=== PATIENT | female | born 1985 | race Caucasian/White ===

== ENCOUNTER 2018-06-01 16:08 | Emergency (ER) | payer OTHER ==
[~2018-06-01] VITALS: Ht 162.6 cm; Wt 90.7 kg
[2018-06-01 16:19] VITALS: BP 125/86
--- NOTE | 2018-06-01 16:23 | NUR ---
PT TRIAGED AND AMBULATED TO ER LOBBY, URINE CUP PROVIDED
--- NOTE | 2018-06-01 16:25 | NUR ---
PT BIB SELF TO THE ED WITH THE CHIEF C/O RUQ PAIN SINCE SUNDAY NIGHT. REPORTS VOMITING SINCE THEN. VOMIT X6 TODAY. NO BLOOD IN VOMIT. PT WENT TO URGENT CARE ON SUNDAY. WAS TAKING CEFUROXIME, OMEPRAZOLE AND ASPIRIN SINCE THEN W/O OF SYMPTOMS. PT STATES SYMPTOMS ARE WORSENING. REPORTS NAUSEA AT THIS TIME. DENIES BURNING OR FREQUENCY OF URINATION. STATES PAIN OF 10/10 AT THIS TIME. ER MD AWARE.
--- NOTE | 2018-06-01 16:26 | NUR ---
pt ambulated to bed 2 at this time. Addendum: 06/01/18 at 1636 by [email or web address] bed 3
[2018-06-01] MEDS ORDERED: NACL 0.9% 1,000 ML IV ONE (17:25)
[2018-06-01] MEDS ORDERED: MORPHINE SULFATE 4 MG/ML SYR IVP ONE (17:25)
[2018-06-01] MEDS ORDERED: ONDANSETRON 4 MG/2 ML VIAL IVP ONE (17:25)
[2018-06-01 18:02] LABS: BASOPHILS % (AUTO) 0.5 % (0.0-2.0); EOSINOPHILS % (AUTO) 0.2 % (0.0-4.0); HEMATOCRIT 38.3 % (36-48); HEMOGLOBIN 12.8 g/dL (12.0-16.0); LYMPHOCYTES # (AUTO) 1.4 K/uL (2.5-16.5); LYMPHOCYTES % (AUTO) 14.6 % (20.5-51.1); MEAN CORPUSCULAR HEMOGLOBIN 29 pg (27-31); MEAN CORPUSCULAR HGB CONC 34 g/dL (33-37); MEAN CORPUSCULAR VOLUME 87.7 fL (80-94); MONOCYTES # (AUTO) 0.8 K/uL (0.8-1.0); MONOCYTES % (AUTO) 7.8 % (1.7-9.3); NEUTROPHILS # (AUTO) 7.5 K/uL (1.8-7.7); NEUTROPHILS % (AUTO) 76.9 % (42.2-75.2); PLATELET COUNT (AUTO) 368 K/uL (140-450); RED BLOOD CELL COUNT(AUTO) 4.37 MIL/uL (4.20-5.40); RED CELL DISTRIBUTION WIDTH 14.6 % (11.6-13.7); WHITE BLOOD COUNT (AUTO) 9.8 K/uL (4.8-10.8)
[2018-06-01 18:02] LABS: APPEARANCE,URINE SL CLOUDY (CLEAR); BILIRUBIN,URINE 3+ (NEGATIVE); BLOOD, URINE NEGATIVE (NEGATIVE); COLOR,URINE ORANGE (YELLOW); LEUKOCYTE ESTERASE ,URINE TRACE (NEGATIVE); NITRITE, URINE NEGATIVE (NEGATIVE); PH,URINE 7.5 (5.0-9.0); UGLUCOSE NEGATIVE (NEGATIVE)
[2018-06-01 18:18] LABS: CARBON DIOXIDE 24.6 mmol/L (21-32); CREATININE 0.7 mg/dL (0.6-1.3); POTASSIUM 3.6 mmol/L (3.5-5.1)
[2018-06-01 18:22] LABS: ALBUMIN 3.8 g/dL (3.4-5.0); TOTAL BILIRUBIN 4.6 mg/dL (0.0-1.0)
--- NOTE | 2018-06-01 19:04 | NUR ---
REPORT GIVEN TO PAYROLL MANAGER RN FOR CONTINUITY OF CARE.
[2018-06-01 19:21] VITALS: BP 121/77
[2018-06-01 19:22] LABS: RBC,URINE 0-5 /HPF (0-5)
--- NOTE | 2018-06-01 19:22 | NUR ---
Patient discharged with v/s stable. Written and verbal after care instructions given and explained. Patient verbalized understanding. Ambulatory with steady gait. All questions addressed prior to discharge. Advised to follow up with PMD.
--- NOTE | 2018-06-04 07:42 | NUR ---
Late Entry. IV fluids infused until discharde at 1920.
== END 2018-06-01 19:25 | disposition home or self-care (01) ==
LOC: MED 16:08
DX: K80.80 Other cholelithiasis without obstruction (principal)
CPT/HCPCS: 36415; 76705; 80053; 81001; 81025; 82150; 83690; 85025; 87086; 96361; 96374; 96375; 99284; J2270; J2405; J7030; Q0092

== ENCOUNTER 2018-06-04 18:06 | Emergency (ER) | payer OTHER ==
[~2018-06-04] VITALS: Ht 162.6 cm; Wt 93.1 kg
[2018-06-04 18:26] VITALS: BP 118/68
--- NOTE | 2018-06-04 19:08 | NUR ---
PT AMBULATED TO ER BED 10
[2018-06-04] MEDS ORDERED: KETOROLAC 60 MG/2 ML VIAL IM ONE (19:20)
--- NOTE | 2018-06-04 19:23 | NUR ---
33 YO F PRESENTS TO ED CO UPPER RIGHT ABD PAIN AND FREQUENT N/V SINCE SUNDAY. PT STATES SHE WAS SEEN IN [place] ED ON SUNDAY WITH SIMILAR S/S AND WAS DISCHARGED HOME WITH GALLSTONES AND RECOMMENDED TO F/U WITH HER PMD. PT STATES HER PMD NO LONGER TAKES HER INSURANCE. PT REPORTS THAT HER PAIN HAS INCREASED AND SHE HAS VOMITED 6 TIMES TODAY. -- ABD SOFT, ROUND, TENDER TO TOUCH IN RIGHT UPPER ABD. NO REBOUND TENDERNESS. BOWEL SOUNDS PRESENT AND ACTIVE IN ALL 4 QUADRANTS. -- PMH: DENIES -- RX: DENIES
[2018-06-04 20:15] VITALS: BP 110/69
--- NOTE | 2018-06-04 20:15 | NUR ---
DISCHARGE INSTRUCTIONS PROVIDED. 0/10 ABD PAIN. NO SOB/DYPNEA. AFEBRILE. VSS. PT TEACHING PROVIDED ON DIS PROCESS, DIETARY NEEDS, AND MEDICATIONS. PT VERBALLIZED UNDERSTANDING OF DC INSTRUCITONS. ALL QUESTIONS ANSWERED.
== END 2018-06-04 20:15 | disposition home or self-care (01) ==
LOC: MED 18:06
DX: K80.80 Other cholelithiasis without obstruction (principal)
CPT/HCPCS: 81002; 81025; 96372; 99283; J1885

== ENCOUNTER 2018-06-28 11:46 | Inpatient (IN) | payer OTHER ==
[~2018-06-28] VITALS: Ht 162.6 cm; Wt 112.0 kg
[2018-06-28 11:47] VITALS: BP 130/64
--- NOTE | 2018-06-28 11:47 | NUR ---
Patient transferred to bed 6 via wheelchair by nurse. RN evaluating patient at bedside.
--- NOTE | 2018-06-28 11:50 | NUR ---
33 YO/F BIB SELF WITH CHIEF C/O ABD PAIN 10/10 X 4 HOURS. PAIN IS NON-RADIATING, TOOK MOTRIN W/O RELIEF. NAUSEA AND SEVERAL EPISODES OF VOMITING. ABD SOFT, TENDER, ACTIVE B/S, LBM TODAY 06/28/18. DENIES BURNING URINATION. HX OF GALLSTONES. AFEBRILE.
[2018-06-28] MEDS ORDERED: MORPHINE SULFATE 4 MG/ML SYR IVP ONE (11:55)
[2018-06-28] MEDS ORDERED: ONDANSETRON 4 MG/2 ML VIAL IVP ONE ×2 (11:55→12:45)
[2018-06-28] MEDS ORDERED: NACL 0.9% 1,000 ML IV ONE ×2 (11:55→12:45)
--- NOTE | 2018-06-28 11:57 | NUR ---
Dr. Soto evaluating patient at bedside.
[2018-06-28 12:10] LABS: BASOPHILS % (AUTO) 0.2 % (0.0-2.0); EOSINOPHILS % (AUTO) 0.2 % (0.0-4.0); HEMATOCRIT 42.1 % (36-48); HEMOGLOBIN 14.2 g/dL (12.0-16.0); LYMPHOCYTES % (AUTO) 9.1 % (20.5-51.1); MEAN CORPUSCULAR HEMOGLOBIN 30 pg (27-31); MEAN CORPUSCULAR HGB CONC 34 g/dL (33-37); MEAN CORPUSCULAR VOLUME 88.3 fL (80-94); MONOCYTES # (AUTO) 1.3 K/uL (0.8-1.0); NEUTROPHILS # (AUTO) 18.3 K/uL (1.8-7.7); NEUTROPHILS % (AUTO) 84.5 % (42.2-75.2); PLATELET COUNT (AUTO) 462 K/uL (140-450); RED BLOOD CELL COUNT(AUTO) 4.77 MIL/uL (4.20-5.40); RED CELL DISTRIBUTION WIDTH 14.7 % (11.6-13.7); WHITE BLOOD COUNT (AUTO) 21.6 K/uL (4.8-10.8)
[2018-06-28] MEDS ORDERED: LORazepam 2 MG/ML VIAL IVP ONE (12:10)
--- NOTE | 2018-06-28 12:25 | NUR ---
Patient taken to CT scan via gurney by [employer].
[2018-06-28 12:26] LABS: ALBUMIN 3.7 g/dL (3.4-5.0); CARBON DIOXIDE 24.3 mmol/L (21-32); CREATININE 0.9 mg/dL (0.6-1.3); TOTAL BILIRUBIN 0.9 mg/dL (0.0-1.0)
[2018-06-28 12:31] LABS: ANION GAP 15.6 (8-16); POTASSIUM 2.9 mmol/L (3.5-5.1)
[2018-06-28] MEDS ORDERED: IBUP-2213 PO (12:40)
--- NOTE | 2018-06-28 12:40 | NUR ---
PT BACK FROM CT SCAN.
[2018-06-28] MEDS ORDERED: HYDROmorphone PFS 2 MG/ML SYR IVP ONE ×2 (12:50→14:15)
--- NOTE | 2018-06-28 12:52 | NUR ---
Dr. Soto re-evaluating patient at bedside.
--- NOTE | 2018-06-28 13:15 | NUR ---
RECEIVED REPORT FROM ED RN. PT IN STABLE CONDITION. RESTING IN BED WITH EYES CLOSED. SKIN INTACT. AMBULATORY. UPDATED BOARD. ALL SAFETY PRECAUTIONS IN PLACE, WILL CONTINUE TO MONITOR.
[2018-06-28 13:20] VITALS: BP 126/62
--- NOTE | 2018-06-28 13:25 | NUR ---
PT APPEARS RELAXED RESTING IN BED. NO C/O N/V. NO C/O PAIN. VSS. ON 2 AT 2 LTR/MIN PER ER .
[2018-06-28] MEDS ORDERED: MEMA10TA PO (14:04)
[2018-06-28] MEDS ORDERED: LORA0.5T6 PO (14:04)
[2018-06-28] MEDS ORDERED: [UNRECOGNIZED DRUG - CODE] PO (14:04)
[2018-06-28] MEDS ORDERED: DONE5TAB6 PO (14:04)
[2018-06-28] MEDS ORDERED: ZYL300 PO (14:04)
[2018-06-28] MEDS ORDERED: PANT40EC28 PO (14:04)
[2018-06-28] MEDS ORDERED: POTA10TE30 PO (14:04)
[2018-06-28] MEDS ORDERED: ASPI-1718 PO (14:04)
[2018-06-28] MEDS ORDERED: FERR325E14 PO (14:04)
[2018-06-28] MEDS ORDERED: POTASSIUM CHL 20 MEQ/NACL 0.9% 1,000 ML IV ONE (14:15)
--- NOTE | 2018-06-28 14:32 | NUR ---
Dr. Johnson evaluating patient at bedside.
[2018-06-28] MEDS: LACTATED RINGERS 1,000 ML IV SCH ×2 (14:38→21:30)
--- NOTE | 2018-06-28 15:13 | NUR ---
Pt report given to PUJA Gilliam in Med-Surg. Transfer of care at this time.
[2018-06-28 15:41] LABS: APPEARANCE,URINE CLEAR (CLEAR); BILIRUBIN,URINE NEGATIVE (NEGATIVE); BLOOD, URINE NEGATIVE (NEGATIVE); COLOR,URINE YELLOW (YELLOW); LEUKOCYTE ESTERASE ,URINE NEGATIVE (NEGATIVE); NITRITE, URINE NEGATIVE (NEGATIVE); UGLUCOSE NEGATIVE (NEGATIVE)
[2018-06-28] MEDS: KCL 20 MEQ/WATER INJ PREMIX 200 ML IV PRN ×3 (16:07→22:40)
--- NOTE | 2018-06-28 16:45 | NUR ---
PER DR. CUNHA, TRANSFER PT TO ICU D/T EXTREME PAIN. NOTIFIED DR. CUNHA THAT DILAUDID WAS GIVEN AT 1607. DR. CUNHA STILL STATES TRANSFER TO ICU. PAGED DR. SNIDER.
[2018-06-28] MEDS: HYDROmorphone PFS 2 MG/ML SYR IVP PRN ×2 (17:08→21:45)
[2018-06-28] MEDS: NACL 0.9% 500 ML IV SCH (17:49)
--- NOTE | 2018-06-28 19:25 | NUR ---
ENDORSED POC TO WASHER OPERATOR RN. PT IN STABLE CONDITION.
--- NOTE | 2018-06-28 19:55 | NUR ---
RECEIVED REPORT FROM PUJA DIGGS IN TELE UNIT. PT IS CURRENTLY AT [facility] GETTING [facility]IDA SCAN, CALLED [facility] TO ASK THEM TO TAKE PT TO ICU WHEN DONE AND THEY AGREED BUT ASKED TO TAKE 2ML OF MORPHINE FOR PT IN 30MIN IN ORDER TO CONTINUE WITH HIDA SCAN. TOLD THEM PT HAS ORDERS FOR 1ML DILAUDID OR 6ML MORPHINE AND THEY SAID THEY NEEDED 2MLS MORPHINE OR THEY WON'T BE ABLE TO CONTINUE WITH SCAN. WILL CALL [facility]ANE HOOK[address] DR FOR DR SNIDER AND OBTAIN ORDER.
--- NOTE | 2018-06-28 20:06 | NUR ---
PAGED MIDDLE SCHOOL FOOTBALL COACH WHO IS DR. CANSECO. DR CANSECO CALLED BACK AND SAID OK TO ORDER 2ML MORPHINE IVP, BUT WHEN I TRIED TO PUT ORDER IN, DR. CANSECO IS NOT IN OUR LIST OF DOCTORS TO PUT IN ORDER FROM. SENIOR DESIGNER WAS CALLED AND TURNS OUT DR CANSECO IS SUSPENDED AT [facility]. WILL TRY TO PAGE ANOTHER DOCTOR.
[2018-06-28] MEDS: MORPHINE SULFATE 4 MG/ML SYR IVP PRN (20:32)
--- NOTE | 2018-06-28 20:32 | NUR ---
[employer] CALLED AGAIN AND SAID THEY NEEDED MORPHINE NOW, TOLD HIM WE ONLY HAD THE 6ML AND HE SAID THAT WAS FINE BUT THEY NEEDED IT NOW. WENT OVER AND GAVE THE 6ML OF MORPHINE TO PT. PT WAS CRYING LOUD AND YELLING SAYING "HELP ME IT HURTS TOO MUCH." PT MANAGED TO VERIFY NAME AND BIRTHDAY AND SHE DENIED ANY DRUG ALLERGIES.
--- NOTE | 2018-06-28 21:10 | NUR ---
PT ARRIVED VIA WHEELCHAIR TO UNIT. PT AAOX4, ON ROOM AIR. PT IS ABLE TO FOLLOW COMMANDS, ABLE TO MAKE NEEDS KNOWN. PT AMBULATES WITH STEADY GAIT AND SKIN IS INTACT. PT HAS A 20G IV TO LEFT AC, ASYMPTOMATIC AND INTACT. NO SIGNS OF DISTRESS NOTED AT THIS TIME. DISCUSSED PLAN OF CARE WITH PT, PT VERBALIZED UNDERSTANDING. PT STATES MORPHINE HELPED HER A LITTLE BIT, BUT SHE STILL HAS 7/10 ABD PAIN. VITAL SIGNS STABLE. POSITIONED PT FOR COMFORT. BED IN LOWEST POSITION AND CALL LIGHT WITHIN REACH. WILL CONTINUE TO MONITOR.
[2018-06-28 21:30] VITALS: BP 149/98
[2018-06-29] VITALS (15 sets, daily range): BP systolic 89–147; BP diastolic 52–97
--- NOTE | 2018-06-29 | NUR ---
NO SIGNS OF DISTRESS NOTED AT THIS TIME. PT SLEEPING COMFORTABLY. VITAL SIGNS STABLE. POSITIONED PT FOR COMFORT. BED IN LOWEST POSITION AND CALL LIGHT WITHIN REACH. WILL CONTINUE TO MONITOR.
[2018-06-29] MEDS: MORPHINE SULFATE 4 MG/ML SYR IVP PRN ×2 (00:20→05:56)
[2018-06-29] MEDS: ONDANSETRON 4 MG/2 ML VIAL IVP PRN ×2 (00:20→14:44)
--- NOTE | 2018-06-29 00:20 | NUR ---
PT WOKE UP, VOMITED, AND HEART RATE INCREASED TO OVER 170. PT STARTED COMPLAINING OF ABD PAIN COMING BACK QUICKLY AND STATES IT IS A 5/10. ADMINISTERED MORPHINE, PT TOLERATED WELL AND FELL BACK TO SLEEP.
--- NOTE | 2018-06-29 01:13 | NUR ---
PAGED ELECTRONIC TECHNOLOGIST DOCTOR REGARDING PT SUSTAINING HEART RATE IN THE 130-140'S
[2018-06-29] MEDS: DILTIAZEM 25 MG/5 ML VIAL IVP PRN ×4 (02:02→21:48)
[2018-06-29] MEDS: LACTATED RINGERS 1,000 ML IV SCH ×4 (03:06→19:05)
[2018-06-29] MEDS: HYDROmorphone PFS 2 MG/ML SYR IVP PRN ×5 (03:19→22:13)
--- NOTE | 2018-06-29 03:31 | NUR ---
PAGED DR CANSECO AGAIN IN REGARDS TO PT HEART RATE BEING IN THE 140'S, EVEN AFTER GIVING CARDIZEM.
[2018-06-29] MEDS ORDERED: NACL 0.9% 500 ML IV SCH (04:35)
[2018-06-29] MEDS ORDERED: METOPROLOL 5 MG/5 ML VIAL IV SCH (05:00)
--- NOTE | 2018-06-29 06:25 | NUR ---
DID BLADDER SCAN ON PT TO SEE IF PT RETAINING URINE, ONLY 60ML OF URINE NOTED.
[2018-06-29 07:09] LABS: BASOPHILS % (AUTO) 0.1 % (0.0-2.0); HEMATOCRIT 45.1 % (36-48); LYMPHOCYTES # (AUTO) 0.6 K/uL (2.5-16.5); LYMPHOCYTES % (AUTO) 2.2 % (20.5-51.1); MEAN CORPUSCULAR HEMOGLOBIN 30 pg (27-31); MEAN CORPUSCULAR HGB CONC 33 g/dL (33-37); MEAN CORPUSCULAR VOLUME 90.8 fL (80-94); MONOCYTES # (AUTO) 1.3 K/uL (0.8-1.0); MONOCYTES % (AUTO) 5.1 % (1.7-9.3); NEUTROPHILS # (AUTO) 23.3 K/uL (1.8-7.7); NEUTROPHILS % (AUTO) 92.6 % (42.2-75.2); PLATELET COUNT (AUTO) 364 K/uL (140-450); RED BLOOD CELL COUNT(AUTO) 4.96 MIL/uL (4.20-5.40); WHITE BLOOD COUNT (AUTO) 25.1 K/uL (4.8-10.8)
--- NOTE | 2018-06-29 07:25 | NUR ---
PT CARE ASSUMED BY CASING GRADER. PT IN STABLE CONDITION.
--- NOTE | 2018-06-29 07:30 | NUR ---
RECEIVED REPORT FROM PUJA ROTH. PT. IS SLEEPING BUT EASY TO AROUSE. ALERT AND ORIENTED. RESP. SHALLOW,TACHYPNEIC. RR BETWEEN 24 TO 27/MIN. DENIES ANY SOB. ENCOURAGED TO TAKE BEEP BREATHS. HOB ELEVATED. 02 AT 2 L/MIN/NC. 02 SAT 95% TO 97%. VICTORIAN LITERATURE PROFESSOR SHOWS ST HR 145 TO 150 /MIN. IV LR INFUSING AT 150 ML/HR VIA LEFT AC IV SITE. AM CARE GIVEN.
[2018-06-29 08:16] LABS: ALBUMIN 2.6 g/dL (3.4-5.0); ANION GAP 16.3 (8-16); CARBON DIOXIDE 22.5 mmol/L (21-32); MAGNESIUM 1.4 mg/dL (1.8-2.4); POTASSIUM 4.8 mmol/L (3.5-5.1); TOTAL BILIRUBIN 2.5 mg/dL (0.0-1.0)
--- NOTE | 2018-06-29 08:17 | NUR ---
PATIENT HAS BEEN SCREENED AND CATEGORIZED MODERATE NUTRITION RISK. PATIENT WILL BE SEEN WITHIN 3-5 DAYS OF ADMISSION. 07/01/18-07/03/[address]
[2018-06-29] MEDS: ENOXAPARIN 40 MG/0.4 ML SYR SUBQ SCH (08:23)
--- NOTE | 2018-06-29 08:30 | NUR ---
REPOSITIONED TO RT SIDE. SEASONAL PACKAGE HANDLER SHOWS ST HR 170'S TO 180'S. MEDICATED FOR PAIN AT 0818. DR. CANSECO PAGED.
--- NOTE | 2018-06-29 09:00 | NUR ---
DR. CANSECO HAS NOT RESPONDED YET. PT. REMAINS IN ST HR 170 TO 180/MIN. PAGED AGAIN THROUGH HIS EXCHANGE.
--- NOTE | 2018-06-29 09:15 | NUR ---
DR. CUNHA CALLED. UPDATED ON PT'S CONDITION. WILL KEEP PT. NPO EXCEPT MEDS.
--- NOTE | 2018-06-29 09:20 | NUR ---
DR. ORR CALLED BACK , NOTIFIED OF PT'S TACHYCARDIA AND LAB RESULTS. GAVE ORDERS.
[2018-06-29] MEDS ORDERED: NACL 0.9% 1,000 ML IV SCH (09:25)
--- NOTE | 2018-06-29 09:32 | NUR ---
IV 0.9NS BOLUS STARTED.
--- NOTE | 2018-06-29 09:34 | NUR ---
12 LEAD EKG DONE AT BEDSIDE. SHOWED ST.
--- NOTE | 2018-06-29 10:35 | NUR ---
0.9 NS BOLUS INFUSED. IV LR RESUMED AT 150 ML/HR. PT'S MAG. LEVEL TODAY 1.4. MAGNESIUM RIDER 4 GMS STARTED AT 25 ML/HR.
[2018-06-29] MEDS: MAG SULF 2000 MG/WATER PREMIX 100 ML IV SCH ×2 (10:39→13:03)
--- NOTE | 2018-06-29 11:15 | NUR ---
ASKING FOR SOMETHING TO DRINK. REMINDED PT THAT SHE'S NPO. ORAL CARE DONE.
--- NOTE | 2018-06-29 11:25 | NUR ---
REMAINS IN ST HR 180/MIN. CARDIZEM 10 MG IVP GIVEN.
--- NOTE | 2018-06-29 12:00 | NUR ---
REMAINS IN ST HR BETWEEN 170 TO 180/MIN.
--- NOTE | 2018-06-29 13:00 | NUR ---
MOANING. DENIES ANY PAINS BUT C/O DRY THROAT. ORAL CARE DONE. WET ORAL SWAB APPLIED TO MOUTH AREA.
--- NOTE | 2018-06-29 13:55 | NUR ---
REMAINS IN ST. HR 178 TO 181/MIN. PT DENIES NAY CHEST PAINS NOR PALPITATIONS. USED THE BEDPAN. VOIDED 150 ML OF MEDIUM ROSENDO URINE. PAGED TROUGH EXCHANGE TO UPDATE ON PT'S CONDITION.
--- NOTE | 2018-06-29 14:00 | NUR ---
AT BEDSIDE. UPDATED ON PT'S CONDITION.
--- NOTE | 2018-06-29 14:14 | NUR ---
MEDICATED FOR ABDOMINAL PAIN WITH DILAUDID 1MG IVP AND ZOFRAN 4 MG IVP FOR NAUSEA. C/0 FEELING HOT. TEMP CHECKED 101.5. TYLENOL 650 MG PO GIVEN. TEPID SPONGE BATH GIVEN. COLD COMPRESS APPLIED TO FOREHEAD.
[2018-06-29] MEDS: ACETAMINOPHEN 325 MG TAB PO PRN ×2 (14:45→20:04)
--- NOTE | 2018-06-29 14:50 | NUR ---
STATES SHE FEELS A LOT BETTER. NO PAIN, NO NAUSEA AT THIS TIME.
[2018-06-29] MEDS ORDERED: MEROPENEM 1,000 MG in NACL 0.9% 100 ML IV SCH (15:17)
--- NOTE | 2018-06-29 15:20 | NUR ---
DR. ORR HASN'T RESPONDED TO EARLIER PAGE TO BE NOTIFIED OF HR 170'S AND 180'S. PAGED AGAIN.
--- NOTE | 2018-06-29 15:30 | NUR ---
DR. CUNHA CALLED. MADE AWARE THAT PT HAD TEMP. 101.5.
--- NOTE | 2018-06-29 16:00 | NUR ---
DR. CUNHA HERE TO SEE AND EXAMINE PT.
--- NOTE | 2018-06-29 16:40 | NUR ---
DR. ORR HERE TO SEE AND EXAMINE PT.
[2018-06-29] MEDS ORDERED: ADENOSINE 6 MG/2 ML VIAL IVP ONE ×2 (16:45→16:59)
--- NOTE | 2018-06-29 16:50 | NUR ---
SPOKE TO DR. BADILLO OVER THE PHONE. NOTIFIED OF PT'S SVT HR 160'S AND BPS IN THE 90'S.
--- NOTE | 2018-06-29 16:53 | NUR ---
ADENOSINE 6 MG IVP GIVEN. NS FLUSH DONE AFTER ADM.
--- NOTE | 2018-06-29 16:58 | NUR ---
ST HR 138/MIN.
--- NOTE | 2018-06-29 17:00 | NUR ---
US OF THE GALLBLADDER DONE AT BEDSIDE.
--- NOTE | 2018-06-29 17:05 | NUR ---
R&D ENGINEER SHOWS SVT. HR 160'S. PT DENIES ANY CHEST DISCOMFORTS NOR PALPITATIONS.
[2018-06-29] MEDS ORDERED: ADENOSINE 6 MG/2 ML VIAL IVP SCH (18:00)
[2018-06-29] MEDS ORDERED: NACL 0.9% 1,000 ML IV ONE (18:00)
--- NOTE | 2018-06-29 18:10 | NUR ---
DR. CABRERA HERE TO SEE AND EXAMINE PT. SPOKE TO PT AND RE POSSIBLE ERCP.
--- NOTE | 2018-06-29 18:15 | NUR ---
CURRENT IVF BAG OF LR INFUSED WIDE OPEN PER DR. CABRERA.
--- NOTE | 2018-06-29 18:50 | NUR ---
PT. REMAINS IN SVT HR 160'S. LEFT MESSAGE WITH DR. BADILLO ON HIS CELL PHONE.
[2018-06-29] MEDS ORDERED: CALCIUM GLUCONATE 10% 1,000 MG in NACL 0.9% 50 ML IV SCH (19:00)
--- NOTE | 2018-06-29 19:05 | NUR ---
NEW BAG OF LR STARTED AT 250 ML/HR VIA RT FA IV SITE.
--- NOTE | 2018-06-29 19:15 | NUR ---
REPORT GIVEN TO PUJA GUEVARA.
--- NOTE | 2018-06-29 19:30 | NUR ---
RECEIVED REPORT FROM PUJA MARISCAL. INITIAL ASSESSMENT COMPLETED. PT IS ON O2 @2LPM VIA NASAL CANNULA. ATTACHED TO STATE ASSESSED PROPERTIES DIRECTOR AND PULSE OXIMETER. IV ACCESS AT RIGHT FIGHT FOREARM 20G, IVF INFUSING WELL. LEFT AC 20G SALINE LOCK, PATENT, INTACT. PT DENIES CHEST DISCOMFORT, PALPITATIONS. ALERT WAKE, ORIENTED, FOLLOWS COMMANDS. BED IN LOW POSITION, SAFETY MEASURE, WILL CONTINUE TO MONITOR.
[2018-06-29] MEDS ORDERED: CALCIUM GLUCONATE 10% 1000 MG/10 ML VIAL ONE (19:56)
--- NOTE | 2018-06-29 20:00 | NUR ---
PATIENT'S HR 160, NO COMPLAINTS OF CHEST DISCOMFORT NOR PALPITATION. PT IS AWAKE, ALERT, ORIENTED AND FOLLOWS COMMANDS. WILL CONTINUE TO MONITOR.
--- NOTE | 2018-06-29 20:30 | NUR ---
ROSENBERG CATHETER INSERTED, 16F, GOOD URINE FLOW ROSENDO IN COLOR, CLEAR, URINE SPECIMEN SENT TO LAB. Addendum: 06/30/18 at 0243 by Bryce Hutchinson RN PT TOLERATED WELL.
[2018-06-29 20:53] LABS: APPEARANCE,URINE CLEAR (CLEAR); BILIRUBIN,URINE NEGATIVE (NEGATIVE); BLOOD, URINE 2+ (NEGATIVE); COLOR,URINE AMBER (YELLOW); LEUKOCYTE ESTERASE ,URINE NEGATIVE (NEGATIVE); NITRITE, URINE NEGATIVE (NEGATIVE); UGLUCOSE NEGATIVE (NEGATIVE)
[2018-06-29] MEDS: PANTOPRAZOLE 40 MG INJ VIAL IVP SCH (21:00)
[2018-06-29] MEDS: MEROPENEM 1,000 MG in NACL 0.9% 100 ML IV SCH (21:01)
[2018-06-29 21:06] LABS: WBC,URINE 0-5 /HPF (0-5)
--- NOTE | 2018-06-29 21:15 | NUR ---
ERCP CONSENT SIGNED BY THE PATIENT.
--- NOTE | 2018-06-29 21:55 | NUR ---
CHARGE NURSE LEFT MESSAGE TO DR. MANDO BADILLO, AWAITING FOR CALL BACK. CARDIZEM IVP 10MG GIVEN ORDERED. WILL CONTINUE TO MONITOR.
--- NOTE | 2018-06-29 22:35 | NUR ---
DR. KIRBY ARMANDO, AWAITING FOR CALL BACK. HR STILL IN 160-165. WILL CONTINUE TO MONITOR.
--- NOTE | 2018-06-29 22:55 | NUR ---
RECEIVED A CALLBACK FROM DR. JANIE ORR, WITH ORDERS MADE.
[2018-06-29] MEDS ORDERED: DIGOXIN 0.25 MG/ML AMP IV SCH (23:30)
[2018-06-29] MEDS: DILTIAZEM 125 MG in DEXTROSE 5% 100 ML IV SCH (23:31)
--- NOTE | 2018-06-29 23:31 | NUR ---
LANOXIN IVP GIVEN ORDERED, CARDIZEM DRIP STARTED ORDERED. WILL CONTINUE TO MONITOR. PT STILL WITH NO COMPLAINT OF ANY DISCOMFORT, NOR PALPITATIONS. WILL CONTINUE TO MONITOR. HR STILL 160s.
[2018-06-29] MEDS ORDERED: DILTIAZEM 125 MG/25 ML VIAL IV ONE (23:32)
--- NOTE | 2018-06-29 23:45 | NUR ---
RT KENNY INCREASED O2 TO 4LPM VIA NASAL CANNULA. O2 SAT 91%, PT DENIES CHEST DISCOMFORT, PALPITATIONS. PT STATED SHE CAN BREATH BUT CANNOT INHALE DEEPLY. DENIES SHORTNESS OF BREATH OR DIFFICULTY OF BREATHING. WILL CONTINUE TO MONITOR.
[2018-06-30] VITALS (92 sets, daily range): BP systolic 102–152; BP diastolic 51–107
--- NOTE | 2018-06-30 | NUR ---
PHONE CALL TO DR. JANIE ORR, UPDATED OF PATIENT'S CONDITION, TEMPERATURE OF 102.5F RECTAL, WITH ORDERS MADE, ON COOLING BLANKET STARTED ORDERED, HR STILL 160. PATIENT STILL WITH NO COMPLAINT OF CHEST DISCOMFORT OR PALPITATIONS. WILL CONTINUE TO MONITOR.
[2018-06-30] MEDS: ONDANSETRON 4 MG/2 ML VIAL IVP PRN (00:05)
[2018-06-30] MEDS: LACTATED RINGERS 1,000 ML IV SCH ×6 (00:07→20:44)
--- NOTE | 2018-06-30 00:19 | NUR ---
JUNIOR ACCOUNTING CLERK AT BEDSIDE FOR LAB DRAWS.
[2018-06-30] MEDS: ACETAMINOPHEN 650 MG SUPP RC PRN ×2 (00:52→20:46)
--- NOTE | 2018-06-30 00:56 | NUR ---
TYLENOL SUPP INSERTED ORDERED. T 102.5F. WILL CONTINUE TO MONITOR.
--- NOTE | 2018-06-30 01:25 | NUR ---
[address] ORR AWAITING FOR CALLBACK. 0125 DR. JANIE ORR RETURNED CALL, NOTIFIED OF LACTIC ACID 3.1, UPDATED OF PATIENT'S CONDITION. WITH ORDERS MADE. WILL CONTINUE TO MONITOR.
[2018-06-30] MEDS ORDERED: NACL 0.9% 1,000 ML IV SCH (01:30)
[2018-06-30] MEDS: HYDROmorphone PFS 2 MG/ML SYR IVP PRN ×7 (01:55→22:45)
[2018-06-30] MEDS ORDERED: NACL 0.9% 1,000 ML IV ONE (02:10)
--- NOTE | 2018-06-30 02:15 | NUR ---
0140 ASSESSED PATIENT. LUNGS ARE CLEAR BILAT. RR 20. NO REAL SOB NOTED. PT STATES HER STOMACH HURTS. PT IS ON 4LNC DUE TO HIGH HEART RATE AND LOW SATURATION
--- NOTE | 2018-06-30 02:16 | NUR ---
RT [facility] NOTIFIED OF DR. JANIE ORR'S ORDER.
--- NOTE | 2018-06-30 04:00 | NUR ---
PT ASLEEP, NO DISTRESS NOTED. WILL CONTINUE TO MONITOR.
[2018-06-30] MEDS: MEROPENEM 1,000 MG in NACL 0.9% 100 ML IV SCH ×3 (04:23→22:02)
[2018-06-30 05:46] LABS: BASOPHILS % (AUTO) 0.1 % (0.0-2.0); EOSINOPHILS % (AUTO) 0.1 % (0.0-4.0); HEMATOCRIT 41.4 % (36-48); HEMOGLOBIN 13.7 g/dL (12.0-16.0); LYMPHOCYTES % (AUTO) 4.4 % (20.5-51.1); MEAN CORPUSCULAR HEMOGLOBIN 30 pg (27-31); MEAN CORPUSCULAR HGB CONC 33 g/dL (33-37); MEAN CORPUSCULAR VOLUME 90.2 fL (80-94); MONOCYTES # (AUTO) 1.3 K/uL (0.8-1.0); MONOCYTES % (AUTO) 5.7 % (1.7-9.3); NEUTROPHILS % (AUTO) 89.7 % (42.2-75.2); PLATELET COUNT (AUTO) 228 K/uL (140-450); RED BLOOD CELL COUNT(AUTO) 4.59 MIL/uL (4.20-5.40); RED CELL DISTRIBUTION WIDTH 15.1 % (11.6-13.7); WHITE BLOOD COUNT (AUTO) 22.3 K/uL (4.8-10.8)
[2018-06-30 06:07] LABS: CREATININE 0.9 mg/dL (0.6-1.3); TOTAL BILIRUBIN 2.3 mg/dL (0.0-1.0)
[2018-06-30 06:09] LABS: BILIRUBIN,DIRECT 0.7 mg/dL (0.0-0.3); TOTAL BILIRUBIN 2.3 mg/dL (0.0-1.0)
--- NOTE | 2018-06-30 07:26 | NUR ---
REPORT GIVEN TO BRONSON GAINES RN.
--- NOTE | 2018-06-30 07:27 | NUR ---
OBTAINED REPORT FROM POLICE CHIEF DEPUTY NURSE AT BEDSIDE, PT IS AAOX4, ABLE TO FOLLOW COMMANDS AND MAKE NEEDS KNOWN, TEMP 99.3F, HR 135, BP 121/89, C/O PAIN TO ABDOMEN 10/10, NO S/S OF DISTRESS, CLEAR LUNG SOUNDS CORDELL. ON O2 AT 4L VIA NC, O2 SAT 95%, ST ON PROVIDER ENGAGEMENT EXECUTIVE, SOFT ROUND ABDOMEN WITH ACTIVE BOWEL SOUNDS, NPO EXCEPT MEDS, ROSENBERG CATHETER IN PLACE WITH CLEAR YELLOW URINE VIA GRAVITY, ABLE TO MOVE ALL EXTREMITIES, SKIN IS INTACT, WARM AND DRY TO TOUCH, IV SITE TO RIGHT FOREARM 20GA, PATENT, RUNNING CARDIZEM AT 5MG/HR,, AND LR AT 250ML/HR, SL TO LEFT AC, 20GA, PATENT, HOB ELEVATED 30 DEGREES, SAFETY MEASURES IN PLACE, WILL CONTINUE TO MONITOR.
[2018-06-30] MEDS: ENOXAPARIN 40 MG/0.4 ML SYR SUBQ SCH (08:40)
[2018-06-30] MEDS: DIGOXIN 0.25 MG/ML AMP IV SCH (08:40)
[2018-06-30] MEDS: PANTOPRAZOLE 40 MG INJ VIAL IVP SCH ×2 (08:40→20:39)
[2018-06-30] MEDS ORDERED: SENNA 8.6 MG TAB PO SCH (09:00)
--- NOTE | 2018-06-30 09:00 | NUR ---
SCHEDULED MEDIATION GIVEN, MEDICATION INDICATION AND SIDE EFFECTS EXPLAINED TO PT, PT VERBALIZED UNDERSTANDING.
[2018-06-30] MEDS ORDERED: NACL 0.9% 500 ML IV SCH ×2 (11:20→11:30)
--- NOTE | 2018-06-30 11:21 | NUR ---
DR. BADILLO CAME IN TO SEE PT AT BEDSIDE, WILL FOLLOW UP WITH NEW ORDERS.
[2018-06-30] MEDS: NACL 0.9% 500 ML IV SCH (11:31)
--- NOTE | 2018-06-30 11:48 | NUR ---
DR. CABRERA CAME IN TO SEE PT AT BEDSIDE, WILL FOLLOW UP WITH NEW ORDERS.
--- NOTE | 2018-06-30 12:00 | NUR ---
NO S/S OF DISTRESS, SEVERE PAIN TO ABDOMEN, WILL MEDICATED, DR. CABRERA SAID NOT DOING SURGERY TODAY DUE TO PT'S CONDITION, CONTINUE MONITOR FOR TODAY.
[2018-06-30] MEDS: SENNA 8.6 MG TAB PO SCH ×2 (12:30→17:00)
--- NOTE | 2018-06-30 13:30 | NUR ---
OBTAINED CONSENT FOR CENTRAL LINE INSERTION FROM PT. Addendum: 06/30/18 at 1420 by Wilfred Dewey RN THE INDICATION FOR CENTRAL LINE EXPLAINED TO PT, PT VERBALIZED UNDERSTANDING.
--- NOTE | 2018-06-30 14:00 | NUR ---
PT IS ASLEEP IN BED, HR 139, INCREASED CARDIZEM DRIP, PT'S AT BEDSIDE.
--- NOTE | 2018-06-30 15:47 | NUR ---
TIME OUT FOR CENTRAL LINE INSERTION, DR. CUNHA AT BEDSIDE PERFORMS THE PROCEDURE, NATHALIE DAWSON AND RNBRONSON AT BEDSIDE.
--- NOTE | 2018-06-30 16:00 | NUR ---
CENTRAL LINE INSERTED TO RIGHT INTRAJUGULAR VEIN, X-RAY CONFIRM PLACEMENT, DR. CUNHA SAID OK TO USE IT.
--- NOTE | 2018-06-30 16:10 | NUR ---
US GUIDED DRAINAGE OF GALLBLADDER CONSENT OBTAINED FROM PT, PROCEDURE EXPLAINED BY DR. CUNHA, PT VERBALIZED UNDERSTANDING
--- NOTE | 2018-06-30 16:15 | NUR ---
PM CARE AND F/C CARE PROVIDED, POSITION CHANGED FOR OFF LOAD PRESSURE.
[2018-06-30 16:45] LABS: PROTHROMBIN TIME 12.1 secs (10.8-13.4)
[2018-06-30] MEDS: DILTIAZEM 125 MG in DEXTROSE 5% 100 ML IV SCH (17:02)
--- NOTE | 2018-06-30 17:15 | NUR ---
TIME OUT FOR BEDSIDE CHOLECYSTOSTOMY DRAIN PLACED WITH US GUIDE BY MEMO FAJARDO , US TECH EUNICE AND RNBRONSON AT BEDSIDE.
[2018-06-30] MEDS ORDERED: LIDOCAINE MPF 1% 5mL VIAL ONE (17:33)
[2018-06-30] MEDS ORDERED: LIDOCAINE 1% 500 MG/50 ML VIAL INJ SCH (18:05)
--- NOTE | 2018-06-30 18:10 | NUR ---
DR. JOAQUIN HAMPTON INSERTED CHOLECYSTOSTOMY TUBE TO RIGHT UPPER ABDOMEN, DARK GREEN BILE FLUID TO DRAINAGE BAG VIA GRAVITY, BILE FLUID COLLECTED FOR CULTURE, SENT TO LAB, PT TOLERATED WELL.
[2018-06-30 18:24] LABS: PROTHROMBIN TIME 11.9 secs (10.8-13.4)
--- NOTE | 2018-06-30 19:00 | NUR ---
SPOKE DR. BADILLO REGARDING THE HR 150 BEAT/MIN, NEW ORDER OBTAINED.
--- NOTE | 2018-06-30 19:02 | NUR ---
PT ASSESSMENT. NOTECED PT IS ASLEEP AND AGONAL BREATHING . CALLED ED MD MOLINA AND PAGED MD CANSECO. ED MD MOLINA AT BEDSIDE. PER MD MOLINA PT IS OK FOR NOW. RN HALEY AND JOCELYN AT BEDSIDE. MD CANSECO CALLED BACK. PER MD CANSECO AND AWARE OF PT CONDITION. PT HR IS 153 SPO2 94% ON 4 L NC WITH HUMIDIFIER.
--- NOTE | 2018-06-30 19:05 | NUR ---
REPORT GIVEN TO ONLINE SERVICES MANAGER NURSE FOR CONTINUE OF CARE.
--- NOTE | 2018-06-30 19:12 | NUR ---
REPORT RECEIVED FROM AM SHIFT. PT AOX4. ABLE TO VERBALIZE NEEDS. TEMP 100.1 AT THIS TIME. COOLING MEASFOLLOWS COMMANDS. RESPONDS TO VERBAL AND TACTILE STIMULI. ON NASAL CANNULA 4LPM. EVEN LABORED BREATHING. LUNG SOUNDS DIMINISHED BILAT. SINUS TACH ON MONITOR. DENIES CP. NO EDEMA NOTED. PERIPHERAL PULSES PRESENT BUE/BLE. ABD SOFT NONTENDER. NPO EXCEPT MEDS AT THIS TIME. LUKASZ DRAIN TO RT ABD. F/C IN PLACE. BLADDER NONDISTENDED. RIGHT FA 20G. DRESSING INTACT. IV SITE PATENT. LEFT AC 20G DRESSING INTACT. SITE PATENT. RIGHT IJ CENTRAL LINE. DRESSING INTACT. ON CARDIZEM DRIP 15MG. SKIN INTACT. MUCOUS MEMBRANES MOIST. NO SIGNS OF ACUTE DISTRESS NOTED. BED IN LOWEST POSITION. CALL LIGHT WITHIN REACH. FAMILY AT BEDSIDE. WILL CONTINUE TO MONITOR.
--- NOTE | 2018-06-30 19:24 | NUR ---
CXR AT BEDSIDE AT THIS TIME.
--- NOTE | 2018-06-30 19:36 | NUR ---
ABG AT BEDSIDE AT THIS TIME.
--- NOTE | 2018-06-30 19:46 | NUR ---
ABG DRAWN WITH NO INCIDENT AND RESULTS GIVEN TO MD CANSECO OVER PHONE.
--- NOTE | 2018-06-30 20:46 | NUR ---
TEMP 101.2 ADMINISTERED TYLENOL SUPP
--- NOTE | 2018-06-30 21:19 | NUR ---
PHONE CALL FROM RADIOLOGY RUBIO; CRITICAL RADIOLOGY REPORT FOR CXR RECEIVED.WILL NOTIFY
--- NOTE | 2018-06-30 21:22 | NUR ---
PHONE CALL TO DR ARBOLEDA; DOOR MACHINE OPERATOR REGARDING CXR; MD ORDERED THE CXR; READ BACK RESULT; PER MD TO CALL MD INSERTING THE CENTRAL LINE.
--- NOTE | 2018-06-30 21:23 | NUR ---
PAGED DR CUNHA REGARDING CRITICAL CHEST XRAY RESULT; AWAITING CALL BACK.
--- NOTE | 2018-06-30 21:27 | NUR ---
PHONE CALL TO DR CUNHA RE; CRITICAL RADIOLOGY(CXR) RESULT;NO ANSWER; LEFT MESSAGE
[2018-06-30] MEDS ORDERED: MEROPENEM 1,000 MG VIAL IV ONE (21:28)
--- NOTE | 2018-06-30 21:40 | NUR ---
PHONE CALL FROM DR CUNHA; READ BACK CRITICAL CXR RESULT; NO NEW ORDERS
--- NOTE | 2018-06-30 22:49 | NUR ---
PT STATES PAIN 12/19 TO R ABD. DILAUDID IVP GIVEN AT THIS TIME.
[2018-07-01] VITALS (95 sets, daily range): BP systolic 104–157; BP diastolic 36–113
--- NOTE | 2018-07-01 00:04 | NUR ---
PT AFEBRILE AT THIS TIME. ST ON MONITOR. NO SIGNS OF ACUTE DISTRESS
--- NOTE | 2018-07-01 01:35 | NUR ---
PT RESTING QUIETLY AT THIS TIME. NO SIGNS OF ACUTE DISTRESS NOTED.
[2018-07-01] MEDS: LACTATED RINGERS 1,000 ML IV SCH ×5 (01:42→22:07)
--- NOTE | 2018-07-01 02:01 | NUR ---
PT C/O PAIN 10/10 TO L ABD. DILAUDID IVP GIVEN. WILL REASSESS PAIN
[2018-07-01] MEDS: DILTIAZEM 125 MG in DEXTROSE 5% 100 ML IV SCH ×3 (02:03→19:11)
[2018-07-01] MEDS ORDERED: DILTIAZEM 125 MG/25 ML VIAL IV ONE (02:03)
[2018-07-01] MEDS: HYDROmorphone PFS 2 MG/ML SYR IVP PRN ×8 (02:12→22:19)
--- NOTE | 2018-07-01 02:19 | NUR ---
NEW CARDIZEM DRIP BAG HUNG AT THIS TIME.
--- NOTE | 2018-07-01 03:12 | NUR ---
HR IN 120-130S AT THIS TIME. DENIES PAIN. WILL CONTINUE TO MONITOR.
[2018-07-01] MEDS: MEROPENEM 1,000 MG in NACL 0.9% 100 ML IV SCH ×3 (05:01→21:42)
--- NOTE | 2018-07-01 05:39 | NUR ---
AM CARE PROVIDED AT THIS TIME
[2018-07-01 06:07] LABS: ALBUMIN 1.8 g/dL (3.4-5.0); ANION GAP 11.6 (8-16); CARBON DIOXIDE 24.9 mmol/L (21-32); CREATININE 0.5 mg/dL (0.6-1.3); MAGNESIUM 1.9 mg/dL (1.8-2.4); POTASSIUM 3.5 mmol/L (3.5-5.1); TOTAL BILIRUBIN 1.7 mg/dL (0.0-1.0)
[2018-07-01 06:36] LABS: HEMATOCRIT 34.3 % (36-48); HEMOGLOBIN 11.4 g/dL (12.0-16.0); MEAN CORPUSCULAR HEMOGLOBIN 30 pg (27-31); MEAN CORPUSCULAR HGB CONC 33 g/dL (33-37); MEAN CORPUSCULAR VOLUME 89.3 fL (80-94); PLATELET COUNT (AUTO) 196 K/uL (140-450); RED BLOOD CELL COUNT(AUTO) 3.84 MIL/uL (4.20-5.40); WHITE BLOOD COUNT (AUTO) 24.1 K/uL (4.8-10.8)
--- NOTE | 2018-07-01 07:10 | NUR ---
ENDORSED CARE TO INCOMING SHIFT FOR CONTINUITY OF CARE
--- NOTE | 2018-07-01 07:11 | NUR ---
OBTAINED REPORT FROM SOUNDING DEVICE OPERATOR NURSE AT BEDSIDE, PT IS AAOX4, ABLE TO FOLLOW COMMANDS AND MAKE NEEDS KNOWN, TEMP 99.0F, HR 132, BP 142/69, C/O PAIN TO ABDOMEN /10, TOLERABLE, NO S/S OF DISTRESS, CLEAR LUNG SOUNDS CORDELL. ON O2 AT 2L VIA NC, O2 SAT 95%, DENIES CHEST PAIN, ST ON RIGGER, SOFT ROUND ABDOMEN WITH ACTIVE BOWEL SOUNDS, STILL NPO EXCEPT MEDS, ROSENBERG CATHETER IN PLACE WITH CLEAR YELLOW URINE VIA GRAVITY, ABLE TO MOVE ALL EXTREMITIES, SKIN IS INTACT, WARM AND DRY TO TOUCH, CENTRAL LINE TO RIJ, TLC, PATENT, RUNNING CARDIZEM AT 15MG/HR,, AND LR AT 250ML/HR, CHOLECYSTOSTOMY TUBE WITH BAG TO RIGHT UPPER QUADRANT, FLUSHED WITH 10ML OF NS ORDERED, POSITION CHANGED FOR COMFORT, HOB ELEVATED 30 DEGREES, SAFETY MEASURES IN PLACE, CALL LIGHT WITHIN REACH, WILL CONTINUE TO MONITOR.
[2018-07-01] MEDS: DIGOXIN 0.25 MG/ML AMP IV SCH (08:07)
[2018-07-01] MEDS: ENOXAPARIN 40 MG/0.4 ML SYR SUBQ SCH (08:07)
[2018-07-01] MEDS: PANTOPRAZOLE 40 MG INJ VIAL IVP SCH ×2 (08:07→21:43)
[2018-07-01] MEDS: SENNA 8.6 MG TAB PO SCH ×3 (08:08→16:41)
[2018-07-01 08:20] LABS: LYMPHOCYTES % (MANUAL) 2 % (20-46); MONOCYTES % (MANUAL) 8 % (5-12)
--- NOTE | 2018-07-01 10:00 | NUR ---
DR. CABRERA CAME IN TO SEE PT AT BEDSIDE, UPDATED PT'S CONDITION, WILL FOLLOW UP WITH NEW ORDERS.
--- NOTE | 2018-07-01 10:20 | NUR ---
DR. CORNEJO CAME IN TO SEE PT AT BEDSIDE, UPDATED PT'S CONDITION, WILL FOLLOW UP WITH NEW ORDERS. Addendum: 07/01/18 at 1124 by Wilfred Dewey RN NOT DR. CORNEJO, IT IS DR. MON
[2018-07-01] MEDS ORDERED: FUROSEMIDE 20 MG/2 ML VIAL IVP SCH (10:30)
[2018-07-01] MEDS ORDERED: POTASSIUM CHLORIDE 20% 40 MEQ/15 ML UDC GT SCH (10:30)
--- NOTE | 2018-07-01 10:30 | NUR ---
CVP MONITOR PLACED PER DR. CABRERA, WITH 12 MMHG, DR. CABRERA AWARE.
--- NOTE | 2018-07-01 12:00 | NUR ---
OFFERED LUNCH, PT IS ABLE TO EAT 50% OF THE MEAL.
--- NOTE | 2018-07-01 13:35 | NUR ---
DR. CUNHA CAME IN TO SEE PT AT BEDSIDE, UPDATED PT'S CONDITION, WILL FOLLOW UP WITH NEW ORDERS.
--- NOTE | 2018-07-01 16:00 | NUR ---
PM CARE AND F/C CARE PROVIDED, PT TOLERATED WELL, POSITION PT TO A COMFORT POSITION.
--- NOTE | 2018-07-01 18:00 | NUR ---
PT IS ASLEEP IN BED, NO S/S OF DISTRESS, POSITION CHANGED FOR COMFORT.
--- NOTE | 2018-07-01 19:20 | NUR ---
REPORT GIVEN TO PLANT MANAGER FOR CONTINUE OF CARE.
--- NOTE | 2018-07-01 19:30 | NUR ---
Report received at bedside from AM Nurse. Pt on bed awake, alert and oriented X3, Kunz in place 250 ml, hermes urine output, drain 100 ml brown, PERRLA 3mm, S1S2 present, HR 139 Regular, Pulse 2+ Upper Extremities Bilateral, Full, Regular, Pulse 2+ Lower Extremities Bilateral, Cap Refill <3s, Full, Regular, Lung Sounds Clear Throughout, Unlabored respiration, RR 15 Regular, Active bowel sounds present at all quadrants, Skin intact, color appropriate with ethnicity, non elastic, no edema present, will continue to monitor.
--- NOTE | 2018-07-01 19:30 | NUR ---
Flushed Right drain tube with 2cc NS.
--- NOTE | 2018-07-01 21:00 | NUR ---
Pt asleep on bedside. VS WNL. Will continue to monitor.
--- NOTE | 2018-07-01 22:00 | NUR ---
Pt attempts to removed NC and BP Cuff, reinforced teaching about the necessity for device. Will continue to monitor.
[2018-07-02] VITALS (95 sets, daily range): BP systolic 101–168; BP diastolic 35–119
--- NOTE | 2018-07-02 | NUR ---
Pt asleep on bed. VS WNL. Will continue to monitor
--- NOTE | 2018-07-02 00:30 | NUR ---
Pt c/o severe abdominal pain, medication given Dilaudid 2mg/ml IVP. Pt attempts to remove NC and BP Cuff, Pt reeducated about the necessity of equipment. Will continue to monitor
--- NOTE | 2018-07-02 02:00 | NUR ---
Pt asleep on bed, NC not attached and placed back on pt. Will continue to monitor.
[2018-07-02] MEDS: LACTATED RINGERS 1,000 ML IV SCH ×2 (03:12→12:01)
--- NOTE | 2018-07-02 03:25 | NUR ---
Pt c/o severe abdominal pain, medication given Dilaudid 2mg/ml IVP. Pt attempts to remove NCPt reeducated about the necessity of equipment. Will continue to monitor
--- NOTE | 2018-07-02 03:55 | NUR ---
Pharmacy called regarding Dilaudid 2mg/ml not showing on eMAR administration time of 07/02/2018 0030, 07/02/2018 0325. Pharmacy advised to call IT and endorse the issue to AM nurse. Will continue to monitor
[2018-07-02] MEDS: MEROPENEM 1,000 MG in NACL 0.9% 100 ML IV SCH ×3 (05:31→20:44)
--- NOTE | 2018-07-02 06:00 | NUR ---
Pt refused AM care. Offered 3x. Will continue to monitor.
--- NOTE | 2018-07-02 07:30 | NUR ---
RECEIVED BEDSIDE REPORT FROM DIGITAL MARKETING ASSOCIATE RN. PT IS AAOX2, CONFUSED, ABLE TO FOLLOW SIMPLE COMMANDS AND MAKE NEEDS KNOWN. REORIENTED PT TO DATE, TIME AND PLACE. TEMP 100.0F, HR 127, C/O ABDOMINAL PAIN 5/10. SINUS TACHYCARDIA ON MONITOR. S1 +S2 HEARD. ON O2 AT 3 LPM/NC, O2 SAT 90%, RR 28. CLEAR LUNG SOUNDS BILATERALLY. ABDOMEN ROUND, DISTENDED WITH ACTIVE BOWEL SOUNDS. CHOLECYSTOSTOMY TUBE IN PLACE TO RIGHT UPPER QUADRANT CONNECTED TO DRAINAGE BAG, FLUSHED WITH 10ML OF NS ORDERED. CENTRAL LINE TLC TO RIJ PATENT, INTACT, ASYMPTOMATIC, RUNNING CARDIZEM DRIP AT 15MG/HR AND IVF LR AT 150ML/HR. ROSENBERG CATHETER IN PLACE DRAINING URINE TO GRAVITY DRAINAGE BAG. SKIN IS INTACT, DRY AND WARM TO TOUCH. ABLE TO MOVE ALL EXTREMITIES. HOB ELEVATED 30 DEGREES, BED IN LOWEST POSITION, LOCKED. NO SIGNS OF DISTRESS NOTED. CALL LIGHT WITHIN REACH. WILL CONTINUE TO MONITOR.
--- NOTE | 2018-07-02 07:33 | NUR ---
CALLED IT AND TALKED TO RAFAEL REGARDING ISSUES WITH MEDICATION DILAUDID NOT REGISTERING ON EMAR. WORK ORDER ISSUES [id number]. AM RN REPORT GIVEN.
[2018-07-02] MEDS: HYDROmorphone PFS 2 MG/ML SYR IVP PRN ×4 (07:43→20:44)
[2018-07-02 08:35] LABS: ANION GAP 11.2 (8-16); CARBON DIOXIDE 28.9 mmol/L (21-32); CREATININE 0.5 mg/dL (0.6-1.3); POTASSIUM 3.1 mmol/L (3.5-5.1)
[2018-07-02 08:38] LABS: HEMATOCRIT 31.4 % (36-48); HEMOGLOBIN 10.5 g/dL (12.0-16.0); MEAN CORPUSCULAR HEMOGLOBIN 30 pg (27-31); MEAN CORPUSCULAR HGB CONC 33 g/dL (33-37); MEAN CORPUSCULAR VOLUME 88.7 fL (80-94); PLATELET COUNT (AUTO) 209 K/uL (140-450); RED BLOOD CELL COUNT(AUTO) 3.54 MIL/uL (4.20-5.40); RED CELL DISTRIBUTION WIDTH 14.5 % (11.6-13.7)
[2018-07-02 08:41] LABS: ALBUMIN 1.7 g/dL (3.4-5.0); TOTAL BILIRUBIN 1.7 mg/dL (0.0-1.0)
[2018-07-02] MEDS: ONDANSETRON 4 MG/2 ML VIAL IVP PRN (08:49)
[2018-07-02] MEDS: PANTOPRAZOLE 40 MG INJ VIAL IVP SCH (08:49)
[2018-07-02] MEDS: POTASSIUM CHLORIDE 20% 40 MEQ/15 ML UDC GT SCH (08:50)
[2018-07-02] MEDS: SENNA 8.6 MG TAB PO SCH (08:50)
[2018-07-02] MEDS: DIGOXIN 0.25 MG/ML AMP IV SCH (08:51)
[2018-07-02] MEDS: ENOXAPARIN 40 MG/0.4 ML SYR SUBQ SCH (08:56)
[2018-07-02 08:57] LABS: WHITE BLOOD COUNT (AUTO) 30.5 K/uL (4.8-10.8)
[2018-07-02 08:58] LABS: BASOPHILS % (MANUAL) 0 % (0-2); EOSINOPHILS % (MANUAL) 0 % (0-4); LYMPHOCYTES % (MANUAL) 5 % (20-46); MONOCYTES % (MANUAL) 4 % (5-12)
--- NOTE | 2018-07-02 09:00 | NUR ---
MEDICATIONS ADMINISTERED ORDERED. PT UNABLE TO SWALLOW PILLS AT THIS TIME. HAD TO CRUSH PILLS AND MIXED WITH APPLE SAUCE. AT BEDSIDE. NO S/SX OF DISTRESS NOTED AT THIS TIME. WILL CONTINUE TO MONITOR.
[2018-07-02] MEDS ORDERED: KCL 20 MEQ/WATER INJ PREMIX 200 ML IV SCH (10:00)
[2018-07-02] MEDS: LORazepam 2 MG/ML VIAL IVP PRN ×2 (10:02→16:43)
--- NOTE | 2018-07-02 11:00 | NUR ---
DR. CUNHA IN TO SEE AND EXAMINE PT. WILL FOLLOW UP ON ORDERS.
--- NOTE | 2018-07-02 11:02 | NUR ---
DR. CUNHA AWARE OF THE LOCATION OF CENTRAL LINE.
--- NOTE | 2018-07-02 11:50 | NUR ---
PT SEEN AND EXAMINED BY DR. MON. WILL FOLLOW UPON ORDERS.
--- NOTE | 2018-07-02 12:00 | NUR ---
RECEIVED A CALL FROM QAMAR FROM [facility]. GAVE HER VERBAL REPORT. SHE SAID SHE WOULD BE SPEAKING WITH DR. MON. SHE SAID WHEN THE PATIENT IS STABLE, SHE WILL NEED TO MOVE PATIENT TO CONTRACTED FACILITY, PHONE FOR QAMAR [phone]
--- NOTE | 2018-07-02 12:06 | NUR ---
DR. CABRERA IN TO SEE AND EXAMINED PT. WILL FOLLOW UP WITH ANY NEW ORDERS.
--- NOTE | 2018-07-02 12:48 | NUR ---
RECEIVED A CALL FROM DR. Thai CABRERA. HE SAID THIS PATIENT NEEDS TO BE TRANSFERED TO HIGHER LEVEL OF CARE FOR NECROTISING PANCREATITIS. I CALLED QAMAR FROM [facility], AND INFORMED HER. I GAVE HER THE CELL PHONE NUMBER TO DR. Thai CABRERA AND PHONE NUMBER TO THE FLOOR. I AGAIN SPOKE WITH DR. Janice CABRERA AND HE SAID HE SPOKE WITH A DR. BLUE (?) FROM [facility]. I INFORMED QAMAR.
[2018-07-02] MEDS ORDERED: FUROSEMIDE 20 MG/2 ML VIAL IVP SCH (13:00)
--- NOTE | 2018-07-02 13:11 | NUR ---
XR CHOLANGIOGRAM AT BEDSIDE. WILL CONTINUE TO MONITOR.
--- NOTE | 2018-07-02 13:16 | NUR ---
DR. BADILLO IN TO SEE PT. WILL FOLLOW UP ON ORDERS.
--- NOTE | 2018-07-02 13:17 | NUR ---
DR. BADILLO AWARE OF PT'S INCREASED HEART RATE IN 130'S, 140'S. NO NEW ORDER AT THIS TIME. PT IS STILL ON CARDIZEM DRIP.
--- NOTE | 2018-07-02 13:41 | NUR ---
RECEIVED A CALL FROM ELSA FROM [facility] REQUESTING FACE SHEET. FAXED FACE SHEET TO ELSA (FAX # [phone])
[2018-07-02] MEDS: DILTIAZEM 125 MG in DEXTROSE 5% 100 ML IV SCH ×2 (14:20→20:45)
--- NOTE | 2018-07-02 14:43 | NUR ---
CALLED QAMAR FROM [facility]. SHE SAID THAT THE TRANSFER TEAM IS WORKING ON THE TRANSFER. QAMAR SAID SHE DOESN'T HAVE THE PHONE NUMBER FOR THE TRANSFER TEAM. Addendum: 07/02/18 at 1507 by Kiesha Tabor MAIN NUMBER TO [facility] [phone]
--- NOTE | 2018-07-02 15:50 | NUR ---
BACK FROM RADIOLOGY AFTER CT OF ABD/PELVIS WITH CONTRAST TAKEN. NO SIGNS OF DISTRESS NOTED AT THIS TIME.
[2018-07-02] MEDS: POTASSIUM CHLORIDE 20 MEQ in LACTATED RINGERS 1,000 ML IV SCH (17:15)
--- NOTE | 2018-07-02 17:20 | NUR ---
DR. MON AT BEDSIDE SPEAKING WITH FAMILY MEMBERS.
--- NOTE | 2018-07-02 17:45 | NUR ---
DINNER PROVIDED. PT ABLE TO TAKE ONLY A FEW SIPS OF JUICE AND WATER. FAMILY AT BEDSIDE.
--- NOTE | 2018-07-02 18:17 | NUR ---
SPOKE TO ELSA FROM [facility] PHONE# [phone], PER ELSA, THEIR PHYSICIAN HAS ACCEPTED TO TAKE THE PT. BUT THEY DON'T HAVE ANY ICU BEDS AVAILABLE AT THIS TIME. WILL CALL SOON BED BECOMES AVAILABLE.
--- NOTE | 2018-07-02 18:30 | NUR ---
CALLED [facility], SPOKE TO MICHAEL, LEAD APPLICATIONS DEVELOPER FLOOR BROKER RE: CONVERSATION WITH ELSA ASH. PER MICHAEL SHE WILL GET IN TOUCH WITH THEIR TRANSFER TEAM AND WILL CALL ME BACK.
--- NOTE | 2018-07-02 18:40 | NUR ---
DR. CUNHA NOTIFIED OF CT OF THE ABDOMEN RESULTS. NO NEW ORDERS GIVEN.
[2018-07-02] MEDS: ACETAMINOPHEN 650 MG SUPP RC PRN (18:47)
--- NOTE | 2018-07-02 19:14 | NUR ---
RCV'D PT ON 3 L NC. PT IS LETHARGIC AND NOT ALERT. RN JOSE AT BEDSIDE AND AWARE. CLEAR BREATH SOUNDS. WILL CONTINUE TO MONITOR.
--- NOTE | 2018-07-02 19:30 | NUR ---
received report from day nurse. no acute distress noted. will continue to monitor.
--- NOTE | 2018-07-02 19:33 | NUR ---
REPORT GIVEN TO IT QUALITY ANALYST RN FOR CONTINUITY OF CARE. NO SIGNS OF DISTRESS NOTED AT THIS TIME.
--- NOTE | 2018-07-02 19:42 | NUR ---
SPOKE WITH SIGNIFCANT OTHER MARYURI AND MOTHER KANDY AND UPDATED PLAN OF CARE. FAMILY AWARE OF MD ORDER TO TRANSFER TO HIGHER LEVEL OF CARE FACILITY AND THAT WE ARE AWAITING BED AVAILABILITY. FAMILY AGREEABLE AND SIGNED CONSENT TO DISCLOSE HEALTH INFO AND AGREEABLE FOR TRANSFER CONSENT.
--- NOTE | 2018-07-02 19:45 | NUR ---
pt lethargic has eyes closed, arousable to name and to shaking. pt mumbling words and incomplete sentences. pt confused aox1, unable to follow commands @ this time. PERRL 3+ sluggish. 130s Sinus Tachycardia 130s MAP 90S. generalized edema +2-3 noted, ascites noted. lungs diminished breath sounds on 2-3 L via NC. abd distended, round, hypoactive bowel sounds; pt s/p cholecystotomy with drain to right lateral side of abdomen in place patent, flushed, draining dark hermes fluid into drainage bag pt has fish cath hermes urine noted. skin pink warm dry intact. RIJ triple lumen in place with CVP monitoring in place. soft wrist restraints in place to bilateral wrist released and reapplied. cooling measures in place, bed locked in lowest position, side rails up x2, call light within reach. will continue to observe.
--- NOTE | 2018-07-02 22:48 | NUR ---
PT AWAKE, RESPONDING TO SIMPLE COMMANDS, WANTING TO PULL TUBES/LINES. REORIENTED PT. RELEASED AND REAPPLIED RESTRAINTS. PT REPOSITIONED, NO ACUTE DISTRESS NOTED. WILL CONTINUE TO OBSERVE.
--- NOTE | 2018-07-02 23:24 | NUR ---
RECEIVED PHONE CALL FROM RICHARD FROM [facility]; AWAITING FINANCIAL CLEARANCE FOR INTERFACILITY TRANSFER. WILL CONTINUE TO OBSERVE.
[2018-07-03] VITALS (91 sets, daily range): BP systolic 97–163; BP diastolic 47–95
[2018-07-03] MEDS: IPRATROPIUM 0.02% 0.5 MG/2.5 ML NEBU INH PRN ×2 (00:58→19:02)
--- NOTE | 2018-07-03 01:19 | NUR ---
PT HAVING PERIODS OF CONFUSION, ASKING FOR FAMILY MEMBERS @ BEDSIDE. RT @ BEDSIDE GIVING BREATHING TX. HR 149 BP 145/80 99% ON 4LNC RR 22-25. DR TORRES @ BEDSIDE, REC: AMMONIA LEVEL, WILL CONTINUE TO OBSERVE.
--- NOTE | 2018-07-03 01:19 | NUR ---
PT CONFUSED AND IN MILD DISTRESS. BREATH SOUNDS EXP WHEEZING. GAVE HHN TX OFF IPRATROPIUM BROMIDE. ER MD TORRES AT BEDSIDE ASSESSING PT. PUJA SCHMID AT BEDSIDE WELL. WILL CONTINUE TO MONITOR.
--- NOTE | 2018-07-03 01:40 | NUR ---
PAGED DR MON, UPDATED REGARDING PT CONDITION AND PERIODS OF CONFUSION, HR 142 BP 129/82 98% ON 4L NC 22 RR. ORDERED ABG, AMMONIA LEVEL, 40 MG IVP LASIX FOR NOW. WILL CONTINUE TO OBSERVE.
[2018-07-03] MEDS ORDERED: FUROSEMIDE 40 MG/4 ML VIAL IVP ONE (01:43)
[2018-07-03] MEDS ORDERED: FUROSEMIDE 20 MG/2 ML VIAL IVP SCH (02:00)
--- NOTE | 2018-07-03 02:10 | NUR ---
PT AROUSABLE, MAKING NEEDS KNOWN, PT STATES SHE HAS 9/10 PAIN TO ABDOMEN. PT AOX2 AND IS AWARE OF PERIODS OF CONFUSION. PT STATED SHE WAS SORRY FOR BEHAVIOR EARLIER. WILL CONTINUE TO OBSERVE.
[2018-07-03] MEDS: HYDROmorphone PFS 2 MG/ML SYR IVP PRN ×6 (02:16→19:37)
--- NOTE | 2018-07-03 02:20 | NUR ---
ROSENBERG DRAINED 1550 OUTPUT AFTER LASIX IVP. PT AOX2 NOW WANTING TO RELEASE RESTRAINTS; PT STATES SHE WILL NOT PULL LINES. PT THEN REQUESTED BEDPAN, X1 BM NOTED, WILL CONTINUE TO OBSERVE.
--- NOTE | 2018-07-03 03:45 | NUR ---
PAGED LAB FOR AMMONIA RESULTS, AND STATED [facility].
[2018-07-03 05:14] LABS: HEMATOCRIT 31.7 % (36-48); HEMOGLOBIN 10.7 g/dL (12.0-16.0); MEAN CORPUSCULAR HEMOGLOBIN 30 pg (27-31); MEAN CORPUSCULAR HGB CONC 34 g/dL (33-37); MEAN CORPUSCULAR VOLUME 88.1 fL (80-94); PLATELET COUNT (AUTO) 261 K/uL (140-450); RED CELL DISTRIBUTION WIDTH 14.3 % (11.6-13.7)
--- NOTE | 2018-07-03 05:15 | NUR ---
NOTIFIED, DR MON OF AMMONIA RESULTS AND ABG. AWARE, NEW ORDERS FOR NGT AND LACTULOSE ORDERED. LABS AND ABG LATER THIS AM
--- NOTE | 2018-07-03 05:30 | NUR ---
AM CARE GIVEN, LINEN CHANGED. PT TURNED AND REPOSITIONED. NO ACUTE DISTRESS NOTED. WILL CONTINUE TO OBSERVE.
[2018-07-03] MEDS: POTASSIUM CHLORIDE 20 MEQ in LACTATED RINGERS 1,000 ML IV SCH ×2 (05:38→22:40)
[2018-07-03] MEDS: MEROPENEM 1,000 MG in NACL 0.9% 100 ML IV SCH ×3 (05:53→20:40)
--- NOTE | 2018-07-03 05:55 | NUR ---
NGT INSERTED, AWAITING XRAY FOR PLACEMENT CONFIRMATION. PT TOLERATED WELL. WILL CONTINUE TO OBSERVE
[2018-07-03 06:11] LABS: PROTHROMBIN TIME 10.2 secs (10.8-13.4)
[2018-07-03 06:12] LABS: WHITE BLOOD COUNT (AUTO) 35.4 K/uL (4.8-10.8)
[2018-07-03 06:49] LABS: LYMPHOCYTES % (MANUAL) 6 % (20-46); METAMYELOCYTES % 1 % (0-0); MONOCYTES % (MANUAL) 5 % (5-12); MYELOCYTES % 1 % (0-0)
[2018-07-03 06:52] LABS: ALBUMIN 1.7 g/dL (3.4-5.0); ANION GAP 6.3 (8-16); CARBON DIOXIDE 33.7 mmol/L (21-32); CREATININE 0.5 mg/dL (0.6-1.3)
[2018-07-03 06:55] LABS: MAGNESIUM 1.7 mg/dL (1.8-2.4)
[2018-07-03] MEDS: DILTIAZEM 125 MG in DEXTROSE 5% 100 ML IV SCH (06:55)
--- NOTE | 2018-07-03 07:30 | NUR ---
REPORT GIVEN TO DAY SHIFT RN FOR CONTINUITY OF CARE.
--- NOTE | 2018-07-03 07:30 | NUR ---
BEDSIDE REPORT RECEIVED FROM [facility] RN FOR CONTINUITY OF CARE. PATIENT IS A0X2. OPENS EYE TO NAME, ABLE TO FOLLOW SIMPLE COMMANDS. SKIN WARM TO TOUCH WNL, TOENAILS WNL, NO EDEMA, WITH HAIR GROWTH AND +3 BILATERAL PEDAL PULSES. RIJ TRIPLE LUMEN CENTRAL LINE PATENT AND INTACT, INITIAL CVP READING 10MMHG. FC 16FR PATENT AND INTACT TO LIGHT ROSENDO URINE IN MODERATE AMOUNT. ON 02 AT 3 LPM/NC, O2 SAT 100%. BILATERAL BREATH SOUNDS CLEAR. ON BILATERAL SOFT WRIST RESTRAINTS, SKIN INTACT. RUQ CYSTOSTOMY TUBE IN PLACE DRAINING TO SEROUSANGUINOUS DRAINAGE IN MODERATE AMOUNT. SAFETY MEASURES IN PLACE. CALL LIGHT WITHIN REACH . WILL CONTINUE TO MONITOR.-
--- NOTE | 2018-07-03 08:15 | NUR ---
PATIENT'S PULLED OUT NGT TUBE. REINSERTED, PATIENT TOLERATED PROCEDURE WELL.
[2018-07-03] MEDS: LORazepam 2 MG/ML VIAL IVP PRN ×2 (08:30→22:56)
[2018-07-03] MEDS: PANTOPRAZOLE 40 MG INJ VIAL IVP SCH (08:54)
[2018-07-03] MEDS: ENOXAPARIN 40 MG/0.4 ML SYR SUBQ SCH (08:55)
[2018-07-03] MEDS ORDERED: POTASSIUM CHLORIDE 20% 40 MEQ/15 ML UDC GT SCH (09:00)
--- NOTE | 2018-07-03 09:10 | NUR ---
DR MON PAGED AND CALLED BACK. MADE AWARE OF PATIENT MAG 1.7 AND K 3.0, WBC 35.4 LEVELS. WITH ORDERS, TRANSCRIBED AND CARRIED OUT.
--- NOTE | 2018-07-03 09:13 | NUR ---
YULIET FROM [facility] CALLED ASKING FOR MANAGER AMBULATORY. CONTACT INFORMATION [phone] PROVIDED TO [employer]OSO[employer] DYNAMICS DEVELOPER.
[2018-07-03] MEDS ORDERED: KCL 20 MEQ/WATER INJ PREMIX 200 ML IV SCH (09:15)
[2018-07-03] MEDS: POTASSIUM CHLORIDE 20% 40 MEQ/15 ML UDC GT SCH (09:58)
[2018-07-03] MEDS: LACTULOSE 20 GM/30 ML UDC PO SCH ×2 (09:58→12:37)
--- NOTE | 2018-07-03 10:00 | NUR ---
DR YAA EVERETT, UPDATED OF PATIENT'S CONDITION. WILL FOLLOW UP WITH ORDERS.
[2018-07-03] MEDS ORDERED: POTASSIUM CHLORIDE 40 MEQ, LIDOCAINE 1% 25 MG in NACL 0.9% 250 ML IV PRN (10:05)
[2018-07-03] MEDS ORDERED: MAG SULF 2000 MG/WATER PREMIX 50 ML IV PRN (10:05)
--- NOTE | 2018-07-03 10:05 | NUR ---
FAMILY AT BEDSIDE. DR MON UPDATED FAMILY OF PATIENT'S CONDITION.
--- NOTE | 2018-07-03 13:28 | NUR ---
DR. RICK EVERETT, WILL FOLLOW UP WITH ORDERS.
[2018-07-03] MEDS ORDERED: TPN PER PHARMACY MC PRN (13:30)
--- NOTE | 2018-07-03 13:42 | NUR ---
07/03/18 RD INITIAL ASSESSMENT COMPLETED PLEASE REFER TO NUTRITION ASSESSMENT UNDER CARE ACTIVITY FOR ESTIMATED NUTRITIONAL NEEDS. 1. CONTINUE CLEAR LIQUID DIET TOLERATED 2. RECOMMEND ENSURE CLEAR BID 3. RD TO FOLLOW-UP 2-3 DAYS, HIGH RISK SHERICE EBRNARD RD Addendum: 07/03/18 at [address] RECOMMEND TPN IF PO INTAKE <50%
[2018-07-03] MEDS ORDERED: MAG SULF 2000 MG/WATER PREMIX 50 ML IV SCH (14:00)
--- NOTE | 2018-07-03 14:36 | NUR ---
SPOKE WITH DR CABRERA AND HE STATED THAT HE SPOKE WITH DR FERNANDEZ AT [facility] AND HE IS WILLING TO ACCEPT PATIENT. INFORMED HIM THAT I WOULD CALL LAWRENCE AT [facility] REGARDING STATUS OF TRANSFER. CALLED QAMAR BRAVO [phone] AND SHE STATED THAT [facility] HAS A TRANSFER TEAM WORKING ON TRANSFER AND THEY ARE AWARE OF THE URGENCY FOR TRANSFERRING THE PATIENT AND ARE CURRENTLY WORKING ON GETTING A BED AT [facility] AND MOST LIKELY IT WOULD BE TODAY.
--- NOTE | 2018-07-03 14:37 | NUR ---
Clinicals faxed to [facility] .
--- NOTE | 2018-07-03 14:40 | NUR ---
DR Thai CABRERA WOULD LIKE TO BE CALLED IF IF PATIENT IS NOT TRANSFERRED BY 1630. HE STATED HE WILL SCHEDULE THE PATIENT FOR ERCP TONIGHT. RECREATIONAL THERAPY AIDE MERCEDES MADE AWARE.
--- NOTE | 2018-07-03 15:12 | NUR ---
Technical Project Manager Note: I called Wild Animal Caretaker Mary from [facility] to tell her I was informed by PUJA Chen, will schedule patient for ERCP tonight if patient is not transferred to one of [facility]'s contracted hospital by 1630 today, no answer, left detailed message regarding this.
--- NOTE | 2018-07-03 15:56 | NUR ---
Local Combination Truck Driver Note: I received a call from Stretcher And Drier Manish from [facility] , she stated [facility] is still working on patient's transfer to another hospital, and are pending responses from [facility], [facility], and [facility] [place]. I told Manish I was informed by PUJA Chen, will schedule patient for ERCP tonight if patient is not transferred to one of [facility] contracted hospital by 1630 today. She verbalized understanding. Per Manish, she will contact ICU and provide nursing staff with transfer update.
[2018-07-03] MEDS: DILTIAZEM 125 MG in DEXTROSE 5% 100 ML IV PRN (16:37)
--- NOTE | 2018-07-03 17:00 | NUR ---
SPOKE TO YULIET OF [facility] TO GET UPDATE REGARDING TRANSFER TO HIGHER LEVEL OF CARE. SHE STATED THEY ARE WORKING WITH [facility], [facility] AND [facility].
--- NOTE | 2018-07-03 17:10 | NUR ---
CALLED US KATHY MAYEN AT INQUIRING FOR BED AVAILABILITY. PER MARYJANE NURSING MANAGER PAYER NO BED AVAILABLE AT THIS TIME. INTAKE PERSONNEL WILL CALL US IF BED IS AVAILABLE.
--- NOTE | 2018-07-03 17:18 | NUR ---
MARK FROM [facility] CALLED INFORMING THE LUMBER MOVER THAT [facility] IS ACCEPTING THE PATIENT. PROVIDED ME WITH [facility] INTAKE'S PHONE NUMBER [phone]. CALLED [facility] AND SPOKE TO ANUPAMA TO THE PHONE PROVIDED, HE SAID HE SENT PAPERWORKS TO [facility]. REQUESTED TO FAX THE TRANSFER PAPERS TO [phone].
--- NOTE | 2018-07-03 17:26 | NUR ---
MARK OF [facility] CALLED AND INFORMED ME THAT [facility] ACCEPTED THE PATIENT. PATIENT WILL GO TO ROOM 208. PHONE NUMBER TO CALL FOR REPORT [phone]. SHE ALSO STATED THAT SHE WILL SET UP TRANSPORT AND WILL CALL ME BACK WITH ETA.
--- NOTE | 2018-07-03 18:03 | NUR ---
DR hTai CABRERA AND DR CANSECO MADE AWARE OF ACCEPTING FACILITY.
--- NOTE | 2018-07-03 18:06 | NUR ---
DR Vanessa BADILLO MADE AWARE OF PATIENT TRANSFERRING TO [facility].
--- NOTE | 2018-07-03 18:07 | NUR ---
DR MON MADE AWARE OF BED AVAILABILITY AT [facility]. CT FOR TRANSFER.
--- NOTE | 2018-07-03 19:12 | NUR ---
RECEIVED PATIENT ON 2L NASAL CANNULA, PULSE OX SAT 98%. PRN BREATHING TREATMENT ADMINISTERED DUE TO EXPIRATORY WHEEZING/SOB. TOLERATED TX WITHOUT ANY ADVERSE SIDE EFFECTS. PLACED PATIENT BACK ON 2L NC. WILL CONTINUE TO MONITOR.
--- NOTE | 2018-07-03 19:20 | NUR ---
BEDSIDE REPORT GIVEN TO NOC RN FOR CONTINUITY OF CARE.
--- NOTE | 2018-07-03 19:30 | NUR ---
PT RECEIVED FROM AM NURSE. PT ASLEEP AT BED. INDWELLING CATHETER IN PLACE, RIGHT IJ CENTRAL LINE, DRESSING CLEAN, DRY AND INTACT IV FLUIDS RUNNING, PT ON CARDIZEM DRIP, FC IN PLACE, ALERT AND ORIENTED X1, PERRLA, 3MM BILATERALLY, BRISK, PULSES 2+ ON UPPER AND LOWER EXTREMITIES BILATERALLY, FULL, REGULAR, CAP REFILL <3 SECS, HR REGULAR, S1 S2 PRESENT, BOWEL SOUNDS ACTIVE IN ALL QUADRANTS, ABDOMEN ROUND, SOFT, NON-TENDER, DISTENDED, SKIN INTACT, COLOR APPROPRIATE TO ETHNICITY.
--- NOTE | 2018-07-03 19:47 | NUR ---
CALLED [facility] TO UPDATE THEM THAT CVP MONITORING HAD BEEN DC'D. REPORT GIVEN TO NEHAL.
--- NOTE | 2018-07-03 19:52 | NUR ---
RECEIVED A CALL FROM [facility], SPOKE WITH BRODY. ACCORDING TO HIM, THE TRANSFER TONIGHT IS CANCELLED PER DR. GUTIERREZ AND WILL BE DONE TOMORROW INSTEAD. WILL NOTIFY ATTENDING PHYSICIAN.
--- NOTE | 2018-07-03 19:54 | NUR ---
PAGED DR. CANSECO TO NOTIFY REGARDING THE STATUS OF TRANSFER OF PT TO [facility].
--- NOTE | 2018-07-03 19:57 | NUR ---
DR. CANSECO CALLED BACK AND NOTIFIED THAT PT WILL BE TRANSFERRED TOMORROW PER ACCEPTING PHYSICIAN DR. GUTIERREZ. NO NEW ORDERS RECEIVED.
--- NOTE | 2018-07-03 19:58 | NUR ---
ATTEMPTED TO CALL DR. CABRERA BUT NO ANSWER. VOICEMAIL LEFT TO CALL BACK THE UNIT.
--- NOTE | 2018-07-03 20:14 | NUR ---
DR. BADILLO AT BEDSIDE TO SEE PT. UPDATED HIM REGARDING THE PT'S CONDITION. RECEIVED NO NEW ORDERS AT THIS TIME. WILL CONTINUE TO MONITOR PT. HR REMAINS BETWEEN 140S TO 150S.
--- NOTE | 2018-07-03 20:29 | NUR ---
CALLED THE PHARMACIST, BEATRIZ, AND WANTED TO CHECK THE COMPATIBILITY OF IVF AND IV ABX. ACCORDING TO HIM, OKAY TO PIGGYBACK MERREM TO LR WITH 20 MEQ POTASSIUM CHLORIDE
--- NOTE | 2018-07-03 22:03 | NUR ---
RECEIVED A CALL FROM [facility] [employer], SPOKE WITH DIEGO. ACCORDING TO HER, THE TRANSFER TO [facility] WAS MOVED TO TOMORROW PER DR. GUTIERREZ. DIEOG WILL TRY TO CONTACT [facility] TO TRY FOR TRANSFER.
--- NOTE | 2018-07-03 23:20 | NUR ---
PT REMAINS CONFUSED AND AGITATED. DOES NOT C/O PAIN AT THIS TIME BUT CONTINUOUSLY ASKS FOR WATER. PT IS GIVEN ICE CHIPS. PT HAS ADEQUATE URINARY OUTPUT AT THIS TIME. RESPIRATIONS ARE EVEN AND UNLABORED. ALL SAFETY PRECAUTIONS ARE IN PLACE. WILL CONTINUE TO MONITOR PT
[2018-07-04] VITALS (43 sets, daily range): BP systolic 64–152; BP diastolic 45–100
[2018-07-04] MEDS: LACTULOSE 20 GM/30 ML UDC PO SCH ×2 (00:30→01:00)
--- NOTE | 2018-07-04 00:55 | NUR ---
PT HAD 1 BM THAT IS LOOSE, BROWN, AND MODERATE IN AMOUNT. PT ABLE TO ASSIST WITH TURNING MINIMALLY. PT TOLERATED BEING TURNED AND REPOSITIONED FAIRLY. PM CARE PROVIDED TO PT. KEPT HOB AY 30 DEGREES. RESTRAINTS STILL IN PLACE. PT IS CONFUSED AND DROWSY. REMAINS ST ON MONITOR DESPITE BEING ON CARDIZEM DRIP. WILL CONTINUE TO MONITOR PT.
--- NOTE | 2018-07-04 02:00 | NUR ---
PT ASLEEP ON BED. VS WNL. WILL CONTINUE TO MONITOR Addendum: 07/04/18 at 0632 by Jaya Barrios RN PT RESTING ON BED. EYES CLOSED, BREATHING EVENLY AND REGULARLY, ON NC RUNNING 2L/MIN, VS WNL. WILL CONTINUE TO MONITOR
[2018-07-04] MEDS: DILTIAZEM 125 MG in DEXTROSE 5% 100 ML IV PRN ×2 (02:11→09:42)
[2018-07-04] MEDS: HYDROmorphone PFS 2 MG/ML SYR IVP PRN ×2 (02:17→07:50)
--- NOTE | 2018-07-04 04:39 | NUR ---
SPOKE WITH ALVIN, WHO CALLED FROM [facility], ACCORDING TO HER THE ICU ATTENDING IS REVIEWING THE CASE OF PT AND THERE IS ALREADY A GI PHYSICIAN ASSIGNED TO PT'S CASE. [facility] TO CALL BACK THIS MORNING TO GIVE AN UPDATE REGARDING THE PT'S TRANSFER TO [facility] THAT IS BEING ARRANGED. WILL COMMUNICATE THIS TO THE NEXT SHIFT.
--- NOTE | 2018-07-04 05:30 | NUR ---
PT HAD ONE BM, LOOSE STOOL, BROWN, AM CARE PROVIDED. PT TOLERATED THE PROCEDURE.
[2018-07-04] MEDS: MEROPENEM 1,000 MG in NACL 0.9% 100 ML IV SCH (05:33)
[2018-07-04 06:21] LABS: PROTHROMBIN TIME 10.8 secs (10.8-13.4)
[2018-07-04 06:32] LABS: HEMATOCRIT 30.7 % (36-48); HEMOGLOBIN 10.1 g/dL (12.0-16.0); MEAN CORPUSCULAR HEMOGLOBIN 29 pg (27-31); MEAN CORPUSCULAR HGB CONC 33 g/dL (33-37); MEAN CORPUSCULAR VOLUME 89.5 fL (80-94); PLATELET COUNT (AUTO) 226 K/uL (140-450); RED BLOOD CELL COUNT(AUTO) 3.44 MIL/uL (4.20-5.40); RED CELL DISTRIBUTION WIDTH 14.9 % (11.6-13.7)
[2018-07-04 06:38] LABS: WHITE BLOOD COUNT (AUTO) 35.7 K/uL (4.8-10.8)
[2018-07-04 07:02] LABS: LYMPHOCYTES % (MANUAL) 2 % (20-46); METAMYELOCYTES % 3 % (0-0); MONOCYTES % (MANUAL) 5 % (5-12)
--- NOTE | 2018-07-04 07:10 | NUR ---
REPORT GIVEN TO MORNING RNCARMELINA, FOR CONTINUITY OF CARE. VS STABLE AT THIS TIME.
[2018-07-04 07:11] LABS: ALBUMIN 1.6 g/dL (3.4-5.0); ANION GAP 8.5 (8-16); CARBON DIOXIDE 35.5 mmol/L (21-32); CREATININE 0.5 mg/dL (0.6-1.3); MAGNESIUM 2.1 mg/dL (1.8-2.4); THYROID STIMULATING HORMONE 1.5 uIU/mL (0.34-3.74); TOTAL BILIRUBIN 2.1 mg/dL (0.0-1.0)
--- NOTE | 2018-07-04 08:41 | NUR ---
Spoke with Shelia from [facility] they will be calling Dr. Gardiner and Dr. Johnson for a DrAmina to Dr. austin.
--- NOTE | 2018-07-04 09:16 | NUR ---
Spoke with Manish BRAVO from [facility] pt has a bed in [facility]. Accepting MD is Dr. Jonelle Box. ICU nurse to call nurses station to give report.
--- NOTE | 2018-07-04 09:20 | NUR ---
RAE FROM [facility] CALLED. PT. WILL BE TRANSFERRED TO [facility]. SHE WILL ARRANGE TRANSPORT. PT'S AT BEDSIDE. AWARE OF THE TRANSFER.
[2018-07-04] MEDS: PANTOPRAZOLE 40 MG INJ VIAL IVP SCH (09:43)
[2018-07-04] MEDS: ENOXAPARIN 40 MG/0.4 ML SYR SUBQ SCH (09:44)
--- NOTE | 2018-07-04 10:04 | NUR ---
Manish BRAVO from [place] called [facility] will picker pt in 45 mins. Notified ICU nurse April LUO.
[2018-07-04] MEDS ORDERED: POTASSIUM CHLORIDE 20% 40 MEQ/15 ML UDC GT SCH (10:15)
[2018-07-04] MEDS ORDERED: KCL 20 MEQ/WATER INJ PREMIX 200 ML IV SCH (10:15)
[2018-07-04] MEDS ORDERED: POTASSIUM PHOSPHATE 30 MM in NACL 0.9% 250 ML IV SCH (10:30)
--- NOTE | 2018-07-04 10:35 | NUR ---
CALLED [facility], REPORT GIVEN TO VANIA ESPINOZA AT [phone].
--- NOTE | 2018-07-04 11:04 | NUR ---
DISCHARGE TO [facility] ACCOMPANIED BY [facility] PERSONNEL AND PATIENT'S MOTHER. REPORT GIVEN TO [facility] PERSONNEL. PATIENT IN STABLE CONDITION.
[2018-07-08 13:38] LABS: LD1 FRACTION 15 % (17-32); LD2 FRACTION 29 % (25-40); LD3 FRACTION 19 % (17-27); LD4 FRACTION 13 % (5-13)
[2018-07-09 13:21] LABS: LACTATE DEHYDROGENASE 801 IU/L (119-226)
[2018-07-09 13:26] LABS: LD5 FRACTION 24 % (4-20)
== END 2018-07-04 11:04 | disposition short-term general hospital (02) | DRG 871 ==
LOC: MED 11:46 → MTU 14:24 → MIC 19:44
PROVIDERS: ADMIT Internal Medicine Pulmonary Disease; ATTEND Internal Medicine Pulmonary Disease
PROC: 02H633Z Insertion of Infusion Device into Right Atrium, Percutaneous Approach (ICD-10-PCS; 2018-06-28)
PROC: B244YZZ Ultrasonography of Right Heart using Other Contrast (ICD-10-PCS; 2018-06-28)
PROC: 0F9430Z Drainage of Gallbladder with Drainage Device, Percutaneous Approach (ICD-10-PCS; principal; 2018-06-30)
DX: A41.9 Sepsis, unspecified organism (principal); G93.41 Metabolic encephalopathy; K85.11 Biliary acute pancreatitis with uninfected necrosis; I47.1 Supraventricular tachycardia; E66.01 Morbid (severe) obesity due to excess calories; E86.0 Dehydration; I48.0 Paroxysmal atrial fibrillation; R74.0 Nonspecific elevation of levels of transaminase and lactic acid dehydrogenase [LDH]; K72.90 Hepatic failure, unspecified without coma; K80.70 Calculus of gallbladder and bile duct without cholecystitis without obstruction; Z68.39 Body mass index [BMI] 39.0-39.9, adult
CPT/HCPCS: 36415; 36600; 47531; 71045; 74018; 76705; 76942; 78445; 80053; 80076; 81001; 81003; 82140; 82150; 82330; 82803; 82948; 83605; 83625; 83690; 83735; 83880; 84100; 84436; 84443; 84703; 85025; 85610; 85730; 86140; 87040; 87070; 87075; 87081; 87086; 87205; 93005; 94640; 96361; 96374; 96375; 96376; 99285; C9113; J0153; J0610; J0696; J1160; J1170; J1650; J1940; J2001; J2060; J2185; J2270; J2405; J3475; J3480; J3490; J7030; J7060; J7120; J7644; Q0092; Q9967